=== PATIENT | female | born 1975 | race Caucasian/White ===

== ENCOUNTER 2016-08-08 08:10 | Emergency (ER) | payer MEDICAID ==
[2016-08-08 08:26] VITALS: BP 141/70
[2016-08-08] MEDS ORDERED: ORPHENADRINE CITRATE 30 MG/ML VIAL IM ONE (08:41)
[2016-08-08] MEDS ORDERED: KETOROLAC TROMETHAMINE 30 MG/ML VIAL IM ONE (08:41)
[2016-08-08] MEDS ORDERED: KETOROLAC TROMETHAMINE 60 MG/2 ML VIAL IM ONE (08:45)
--- NOTE | 2016-08-08 08:45 | ERNOTE ---
Back Pain ER HPI Date of Service: 08/08/16 Presenting Symptoms: hx chronic back pain Time Seen by Provider: 08/08/16 08:34 Source: patient Exam Limitations: no limitations Immunizations: IMMUNIZATION HX Immunizations Up to Date No History of Influenza Vaccine No Hx Pneumococcal Vaccination No Allergies/Adverse Reactions: Allergies No Known Allergies Allergy (Verified 08/08/16 08:30) Home Medications: HOME MEDICATIONS Acetaminophen [Pain Relief Extra Strength] 4,000 mg PO BID 08/08/16 [Last Taken Unknown] Baclofen 10 mg PO QID #30 tablet 08/08/16 [Last Taken Unknown] Ibuprofen [Motrin] 800 mg PO QID PRN 08/08/16 [Last Taken Unknown] traMADol HCL [Ultram] 50 mg PO QID PRN #20 tablet 08/08/16 [Last Taken Unknown] Timing: Reports: constant Quality/Severity: Reports: moderate Location of pain: Reports: lower back Activities at Onset: Reports: none Recent Injury?: Reports: no Modifying Factors - (Improves): Reports: nothing Modifying Factors - (Worsens): Reports: nothing Review of Systems - Review of Systems Constitutional: Present: See HPI EYE: Present: no symptoms reported ENT: Present: no symptoms reported Respiratory: Present: no symptoms reported Cardiology: Present: no symptoms reported Gastrointestinal/Abdominal: Present: no symptoms reported Genitourinary: Present: frequency Musculoskeletal: Present: back pain Skin: Present: no symptoms reported Neurological: Present: no symptoms reported Endocrine: Present: no symptoms reported Hematologic/Lymphatic: Present: no symptoms reported Psych: Present: no symptoms reported - Patient's Past Medical History Patient History - Medical: Anxiety, Chronic Pain, Depression Patient History - Cardiac/Respiratory: No pertinent hx Patient History - Cancer: No Hx of Cancer Patient History - Surgical Procedures: , Tubal Ligation Patient History - Other: None LMP (females 10-50): 1 month - Social History Living Situations: spouse Abuse History: No History of abuse Psych History: Hx of Anxiety, Hx of Depression Smoking Status: Current every day smoker Have you smoked in the past 12 months: Yes Do you dip or chew tobacco: No Patient requests Smoking Cessation Consult: No Initiate information on Smoking Cessation: No Alcohol Use: none Drug Use: other - Immunizations Immunizations Up to Date: No Hx Pneumococcal Vaccination: No History of Influenza Vaccine: No Physical Exam - Physical Exam General Appearance: Present: wd/wn, alert, moderate distress Eye Exam: Normal inspection: bilateral, PERRL: bilateral Ears, Nose, Throat: Present: normal ENT inspection, H, normal pharynx Neck: Present: normal inspection, nontender Respiratory: Present: no respiratory distress, normal breath sounds, no accessory muscle use, chest nontender, lungs clear Cardiovascular/Chest: Present: regular rate, rhythm, no murmur, normal peripheral pulses Gastrointestinal/Abdominal: Present: normal bowel sounds, nontender, nondistended, soft, no organomegaly Rectal Exam: Present: deferred Back Exam: Present: decreased range of motion, muscle spasm Extremity Exam: Present: normal inspection, non-tender, no edema, normal range of motion Neurological Exam: Present: alert, oriented, normal mood/affect Skin Exam: Present: normal color, warm/dry Lymphatic Exam: Present: no adenopathy ED Progress - Results and Orders Patient's Lab Results:: I have reviewed the patient's lab results. - Vital Signs Patient's Vital Signs:: I have reviewed the patient's vital signs. Vital Signs: Vital Signs 08/08/16 08:19 Temperature 36.4 C L Pulse Rate 108 H Respiratory 16 Rate Blood Pressure 141/70 O2 Sat by Pulse 97 Oximetry - Progress/Reassessment Chief Complaint: Back Pain Progress:: Re-examined Plan - Plan Plan: Pt remains in fairly bad low back pain. We discussed the management of her back pain from the ER and the sheer impossibility of this treatment regimen. I will try her on Baclofen and Tramadol and refer her back to her back specialist. We also discussed narcotic management for chronic pain out of the ED and that we will not be able to assist in that approach either. Departure Clinical Impression: Chronic back pain Qualifiers: Back pain location: low back pain Back pain laterality: unspecified Sciatica presence: without sciatica Qualified Code(s): M54.5 - Low back pain; G89.29 - Other chronic pain - Departure Disposition: Home self-care Condition: Good Instructions: Chronic Back Pain Referrals: Juliette Purdy FNP [Primary Care Provider] - Prescriptions: Baclofen 10 mg PO QID #30 tablet traMADol HCL [Ultram] 50 mg PO QID PRN #20 tablet PRN Reason: Moderate Pain
[2016-08-08] MEDS ORDERED: ORPHENADRINE CITRATE 30 MG/ML VIAL ONE (08:46)
--- OUTSIDE RECORDS SUMMARY | 2016-08-08 09:00 | XMS REPORT | Continuity of Care Document ---
:1975 Author Organization [facility] ([facility]) Address [place] [address] Phone [phone] Care Team Providers Name Role Phone Unavailable Primary Care Provider Unavailable Source Comments This disclosure is being made pursuant to the Care Everywhere program, applicable federal and state laws, and may not contain all informaitonavailable regarding this patient.[facility] ([facility]) Active Allergies and Adverse Reactions No Active Allergies Current Medications Not on file Active Problems Problem Noted Date 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
--- OUTSIDE RECORDS SUMMARY | 2016-08-08 09:00 | XMS REPORT | Continuity of Care Document ---
:1975 Author Organization [facility] [place] [address] Care Team Providers Name Role Phone Unavailable Primary Care Provider Unavailable Source Comments This disclosure is being made pursuant to the [employer] program and maynot contain all information available regarding this patient.[facility] Active Allergies and Adverse Reactions Not on File Current Medications Be aware that medications may not be up to date as of this document. Alwaysverify current medications with the patient. Not on file Active Problems Not on file Social History Tobacco Use Types Packs/Day Years Used Date Never Assessed Plan of Care Health Maintenance Due Date Last Done Comments Retired-Pertussis Vaccine Adult 1993 Retired-Tetanus Vaccine Adult 1993 Pap Smear 12/25/1995 Mammogram 2014 Retired-INFLUENZA VACCINE 01/12/2015 Results from Last 3 Months Not on file
--- OUTSIDE RECORDS SUMMARY | 2016-08-08 09:01 | XMS REPORT | Summary of Care ---
:1975 Author Organization [facility] Address [address] [place] [address] Care Team Providers Name Role Phone Juliette Purdy Primary Care Physician Encounter Date(s): 07/10/16 - 07/10/16 [facility] [address] [place], [place] [address] Discharge Disposition: 01 Discharged to Home or Self Care Attending Physician: Jeramy Hooper NP Referring Physician: Ton Duarte MD Vital Signs Most recent to oldest [Reference Range]: 1 Peripheral Pulse Rate [60-100 bpm] 53 bpm *LOW* (07/10/16 9:18 AM) Blood Pressure [90-130/60-90 mmHg] 120/73mmHg (07/10/16 9:18 AM) Mean Arterial Pressure, Cuff 89 mmHg (07/10/16 9:18 AM) Most recent to oldest [Reference Range]: 1 Height/Length Measured 166 cm (07/10/16 9:18 AM) Weight Dosing 65.20 kg1 (07/10/16 9:24 AM) Weight Measured 65.2 kg (07/10/16 9:18 AM) BSA Measured 1.73 m2 (07/10/16 9:18 AM) Body Mass Index Measured 23.66 kg/m2 (07/10/16 9:18 AM) 1Result Comment: This result was because the dosing weight was either not entered or it is>30 days old. This result is based off: Weight Measured July 10, 2016 09:18:00 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 by Samy Medina, [employer] Boat Operator Problem List No data available for this section Allergies, Adverse Reactions, Alerts No Known Medication Allergies Medications Flexeril 10 mg oral tablet tab(s), Oral, TID, 0 Refill(s), Start Date: 04/28/16 10:55:00 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 Start Date: 04/28/16 Stop Date: 05/19/16 Status: Discontinuedindomethacin 25 mg oral capsule 1 cap(s), Oral, TID, PRN for arthritis, with food or milk, # 90 cap(s), 0 Refill (s), Start Date: 04/28/16 11:33:00 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, [facility] [place] [place] Special Instructions: with food or milk Start Date: 04/28/16 Stop Date: 05/19/16 Status: DiscontinuedMedrol Dosepak 4 mg oral tablet 1 packet(s), Oral, Per Package Label, as directed on package labeling, # 21 tab( s), 0 Refill(s), Start Date: 04/28/16 11:33:00 [employer]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, Pharmacy: [facility] [place], [place] Special Instructions: as directed on package labeling Start Date: 04/28/16 Stop Date: 05/19/16 Status: Discontinuednaproxen 500 mg oral tablet 1 tab(s), Oral, BID, 0 Refill(s), Start Date: 04/28/16 10:55:00 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 Start Date: 04/28/16 Stop Date: 05/19/16 Status: DiscontinuedNorco 5 mg-325 mg oral tablet 1 tab(s), Oral, TID, PRN prn pain, # 90 tab(s), 0 Refill(s), Start Date: 11:33:00 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, other reason (Rx) Start Date: 05/19/16 Status: OrderedtraMADol 50 mg oral tablet 1 tab(s), Oral, q6hr interval, PRN as needed for pain, 0 Refill(s), Start Date: 04/28/16 10:55:00 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 Start Date: 04/28/16 Stop Date: 05/19/16 Status: Discontinued Results No data available for this section Immunizations No data available for this section Procedures Procedure Date Related Diagnosis Body Site Caesarean section1 Removal of remaining ovary 1x 4 Social History No data available for this section Assessment and Plan No data available for this section
[2016-08-08 09:20] LABS: Urine Bilirubin Negative (NEGATIVE); Urine Ketone Negative (NEGATIVE); Urine Nitrite Negative (NEGATIVE); Urine Protein Negative (NEGATIVE); Urine Specific Gravity >=1.030 SP.GR. (1.005-1.010); Urine Urobilinogen Normal (NORMAL); Urine pH 5.5 pH (5.0-7.0)
[2016-08-08 09:21] LABS: Urine Appearance Slightly Cloudy; Urine Bacteria TRACE; Urine Blood 10 /ul (NEGATIVE); Urine Color Yellow; Urine RBC 0-5 /hpf (0-5); Urine WBC 0-5 /hpf (0-5)
== END 2016-08-08 09:37 | disposition home or self-care (01) ==
LOC: ER 08:10
DX: M54.5 Low back pain (principal); Z72.0 Tobacco use; G89.29 Other chronic pain